=== PATIENT | male | born 1950 | race Caucasian/White ===

== ENCOUNTER 2019-08-26 15:58 | Emergency (ER) | payer MEDICARE, OTHER, SELFPAY ==
[2019-08-26 16:06] VITALS: BP 169/73; PULSE 78; RESP 15; TEMP 36.7; O2SAT 99; BMI 27.9
--- NOTE | 2019-08-26 16:36 | ED_ITS ---
HPI - Eye Problem General Chief complaint: Eye Problems Stated complaint: dr mcduffie from [facility] wants him seen Time Seen by Provider: 08/26/19 16:35 Source: patient Mode of arrival: Ambulatory Limitations: no limitations History of Present Illness HPI Narrative: This is a 69-year-old male comes to the emergency department with complaint of right eye pain. Patient was seen by Dr. Mary duval 1 of our [facility] today. Patient has a history of advanced glaucoma, he has had shunts placed in both of his eyes as well as cataract surgery. He states he has been on the list for a right corneal transplant but today when he was seen by Dr. Mary duval was told that there was a hole in the cornea and then had flattened. He has had a major decrease in his vision he can typically see 2200 and today he can see movement but no words, signs or other changes. Dr. Mcduffie saw the patient in his office and walked him here to the emergency department as he feels patient needs transfer down to [facility] for emergent evaluation and possibly corneal transplant. He recommended 1 g cefazolin and 400 mg IV mo xifloxacin. Because patient is driving himself today he would need transport via EMS. Related Data Allergies Allergy/AdvReac Type Severity Reaction Status Date / Time piperacillin [From Zosyn] Allergy Verified 08/26/19 16:54 tazobactam [From Zosyn] Allergy Verified 08/26/19 16:54 Review of Systems Review of Systems ROS Unobtainable: All systems reviewed & are unremarkable except as noted in HPI and below Patient History Medical History (Updated 08/26/19 @ 17:19 by Radha Harvey DO) Dyslipidemia (Acute) Hypertension (Acute) Social History Smoking Status: Never smoker Smoking Status: Never smoker Substance Use Type: does not use Exam Narrative Exam Narrative: GEN: well nourished, well appearing male, alert and oriented x 3, patient appears to be in mild distress. HEENT: Atraumatic, pupils are equal round reactive to light, extraocular movements are intact. Repeat ophthalmology evaluation was deferred as patient had an extensive exam by Dr. Mcduffie just prior to arrival HEART: Regular rate and rhythm without murmur, clicks, rubs. LUNGS:Lungs clear to auscultation, no wheezes, rales, crackles, chest moves symmetrically ABD:bowel sounds normal, soft, non-tender, no guarding, rebound, rigidity, no masses noted, no hepatosplenomegaly MSCL: full range of motion, normal gait NEURO:CN 2-12 intact, sensation normal Initial Vital Signs Initial Vital Signs: Vital Signs Temperature 98.1 F 08/26/19 16:06 Pulse Rate 78 08/26/19 16:06 Respiratory Rate 15 08/26/19 16:06 Blood Pressure 169/73 H 08/26/19 16:06 Pulse Oximetry 99 08/26/19 16:06 Course Orders Ordered: ED Orders 08/26/19 16:26 Complete Blood Count AUTO DIFF Stat Comprehensive Metabolic Panel Stat Discontinued Medications Cefazolin Sodium/Dextrose (Ancef) 1 gm in 50 mls @ 200 mls/hr IV NOW ONE Stop: 08/26/19 16:49 Moxifloxacin HCl (Avelox) 400 mg in 250 mls @ 250 mls/hr IV NOW ONE Stop: 08/26/19 17:35 Last Admin: 08/26/19 17:14 Dose: 250 mls/hr Documented by: SHERRELL Vital Signs Vital signs: Vital Signs - 8 hr 08/26/19 16:06 Temperature 98.1 F Pulse Rate 78 Respiratory Rate 15 Blood Pressure 169/73 H Pulse Oximetry 99 MDM - Eye Problem Lab Data Attestation: I reviewed the patient's lab results. Result diagrams: 08/26/19 16:26 08/26/19 16:26 Labs: Lab Results 08/26/19 08/26/19 Range/Units 16:26 16:26 WBC 6.9 (4.5-11.0) X10^3/uL RBC 3.47 L (4.5-5.9) X10^6/uL Hgb 10.5 L (13.5-17.5) g/dL Hct 31.5 L (41-53) % MCV 90.8 (80-100) fL MCH 30.3 (26-34) PG MCHC 33.4 (30-36) % RDW 13.8 (11.6-14.8) % Plt Count 208 (150-400) X10^3/uL Neut % (Auto) 69.1 (50-75) % Lymph % (Auto) 18.4 L (25-40) % Parmer % (Auto) 9.2 (3-14) % Eos % (Auto) 2.6 (2-4) % Baso % (Auto) 0.7 (0-2) % Neut # (Auto) 4800 (5842-5909) /uL Lymph # (Auto) 1300 (1171-0004) /uL Parmer # (Auto) 600 (0-900) /uL Eos # (Auto) 200 (0-450) /uL Baso # (Auto) 0 (0-100) /uL Sodium 141 (137-145) mmol/L Potassium 4.5 (3.4-5.1) mmol/L Chloride 106 (98-107) mmol/L Carbon Dioxide 30 (22-32) mmol/L BUN 32 H (9-20) mg/dL Creatinine 1.30 H (0.66-1.25) mg/dL Estimated GFR 54.6 L (>60) mL/min BUN/Creatinine Ratio 24.6 H (6-22) Glucose 97 (80-110) mg/dL Calcium 9.3 (8.4-10.2) mg/dL Total Bilirubin 0.3 (0.2-1.3) mg/dL AST 32 (17-59) IU/L ALT 26 (<50) IU/L Alkaline Phosphatase 50 (38-126) U/L Total Protein 6.8 (6.3-8.2) g/dL Albumin 3.6 (3.5-5.0) g/dL Globulin 3.2 (1.7-4.1) g/dL Albumin/Globulin Ratio 1.1 (1.0-2.8) MDM Narrative Medical decision making narrative: Patient started on Moxifloxacin. Patient has possible allergy to Zosyn but patient states he was on multiple antibiotics at the same time and states that his body was shutting down and he does not know exactly what the cause was. He states that the doctors told in they suspected the Zosyn was the most likely cause. Call to [facility] for transfer. Spoke with Dr. Ulrich from Ophthalmology. Discussed recommendations and Dr. Mcduffie's evaluation. She accepts for transfer. States that it is fine just to give the moxifloxacin 400 mg and hold the cefazolin at this time. She does ask that we make sure the note transfers with the patient to [facility]. Plan for BLS transfer as patient only has vision in 1 eye that's reliable at this time, it's dark out and he has no one to drive him. Patient tetanus is up to date in the last year. Received moxifloxacin IV in department. Discharge Plan Departure Patient Disposition: [facility] Clinical Impression: Corneal ulcer, perforated
[2019-08-26 16:44] LABS: Add Manual Diff / Slide Review NO; Basophils Absolute Auto 0 /uL (0-100); Basophils Percent Auto 0.7 % (0-2); Eosinophils Absolute Auto 200 /uL (0-450); Eosinophils Percent Auto 2.6 % (2-4); Hematocrit 31.5 % (41-53); Hemoglobin 10.5 g/dL (13.5-17.5); Lymphocytes Absolute Auto 1300 /uL (1100-4500); Lymphocytes Percent Auto 18.4 % (25-40); Mean Corpuscular HGB Conc 33.4 % (30-36); Mean Corpuscular Hemoglobin 30.3 PG (26-34); Mean Corpuscular Volume 90.8 fL (80-100); Monocytes Absolute Auto 600 /uL (0-900); Monocytes Percent Auto 9.2 % (3-14); Neutrophils Absolute Auto 4800 /uL (1500-7000); Neutrophils Percent Auto 69.1 % (50-75); Platelet Count 208 X10^3/uL (150-400); Red Blood Cell Count 3.47 X10^6/uL (4.5-5.9); Red Cell Distribution Width 13.8 % (11.6-14.8); White Blood Cell Count 6.9 X10^3/uL (4.5-11.0)
[2019-08-26 16:46] LABS: Alanine Aminotransferase 26 IU/L (<50); Albumin 3.6 g/dL (3.5-5.0); Albumin Globulin Ratio 1.1 (1.0-2.8); Alkaline Phosphatase 50 U/L (38-126); Aspartate Aminotransferase 32 IU/L (17-59); BUN Creatinine Ratio 24.6 (6-22); Bilirubin Total 0.3 mg/dL (0.2-1.3); Blood Urea Nitrogen 32 mg/dL (9-20); Calcium 9.3 mg/dL (8.4-10.2); Carbon Dioxide 30 mmol/L (22-32); Chloride 106 mmol/L (98-107); Estimated Glomerular Filt Rate 54.6 mL/min (>60); Globulin 3.2 g/dL (1.7-4.1); Glucose 97 mg/dL (80-110); HEMOLYSIS < 15 (0-50); Potassium 4.5 mmol/L (3.4-5.1); Sodium 141 mmol/L (137-145); Total Protein 6.8 g/dL (6.3-8.2)
[2019-08-26] MEDS: Moxifloxacin 400 MG/250 ML PIGGYBACK 250 MG IV (17:14)
[2019-08-26 18:00] VITALS: BP 133/68; PULSE 66; RESP 16; O2SAT 97
--- NOTE | 2019-09-23 00:59 | PC.NURSE ---
Avelox 250 mL @ 250 mL/hr infused at 1814 hrs.
== END 2019-08-26 18:48 | disposition short-term general hospital (02) ==
PROVIDERS: Emergency Provider Emergency Medicine
DX: H16.07 Perforated corneal ulcer (principal); E78.5 Hyperlipidemia, unspecified; I10 Essential (primary) hypertension
CPT/HCPCS: 36415; 80053; 85025; 96365; 99284; J2280